=== PATIENT | male | born 1990 | race Caucasian/White ===

== ENCOUNTER → 2024-04-30 15:32 | Outpatient (REF) | payer OTHER, SELFPAY | LOC: MRI 3T 15:32 | PROVIDERS: ATTENDING PHYSICIAN Psychiatry & Neurology Neurology; FAMILY PHYSICIAN Family Medicine | DX: G35 Multiple sclerosis (principal) | CPT/HCPCS: 72157; A9575 ==

== ENCOUNTER → 2024-05-01 17:42 | Outpatient (REF) | payer OTHER, SELFPAY | LOC: MRI 3T 17:42 | PROVIDERS: ATTENDING PHYSICIAN Psychiatry & Neurology Neurology; FAMILY PHYSICIAN Family Medicine | DX: G35 Multiple sclerosis (principal) | CPT/HCPCS: 70553; 72156; A9575 ==